=== PATIENT | female | born 1965 | race Caucasian/White ===

== ENCOUNTER 2019-03-01 20:00 | Inpatient (IN) | payer OTHER ==
[~2019-03-01] VITALS: Ht 157.5 cm; Wt 48.1 kg
[~2019-03-01 20:00] MED LIST: NS 1000ML 1,000 ML IV STA; NS 1000ML 1,000 ML ONE
--- NOTE | 2019-03-01 20:06 | ER.PDOC ---
General Chief Complaint: Requesting Medical Care Stated Complaint: SEIZURES Time seen by MD: 20:02 Source: family, EMS, EMS notes reviewed Exam Limitations: clinical condition History of Present Illness Initial Comments Seizures x2, patient is an alcoholic and last drink was 4 days ago. Patient had urinary incontinence. Timing/Onset/Duration: Multiple Episodes Character Of Seizures: lost consciousness Motor Activity: shaking all over Injury: none Allergies: Coded Allergies: aspirin (Verified Allergy, Unknown, 03/01/19) Home Meds Unable to Obtain Active Prescriptions or Reported Meds Social History Alcohol Use: heavy Constitutional: no symptoms reported EENTM: no symptoms reported Respiratory: no symptoms reported Cardiovascular: no symptoms reported Gastrointestinal: no symptoms reported Psychiatric/Neurological: see HPI All Other Systems: Reviewed and Negative Physical Exam General Appearance: alert, no distress, anxious EENT: nml eye inspection, PERRL, no nystagmus, nml ENT inspection, no apparent, pharynx nml, no CSF leak Respiratory: no resp distress, breath sounds nml, no evidence of rib injury CVS: reg rate & rhythm, heart sounds nml Abdomen: non-tender, no organomegaly, no distention Skin: color nml, no rash, warm/dry Extremities: non-tender, nml ROM, no pedal edema Neuro/Psych: oriented x 3, speech nml, mood/affect nml Cranial Nerves: nml tested Results/Orders Results/Orders Orders - TRI KAPLAN MD Cbc With Auto Diff (03/01/19 19:59) Comprehensive Metabolic Panel (03/01/19 19:59) Creatine Kinase (03/01/19 19:59) Xr Chest 1v (03/01/19 19:59) Ct Head Wo Contrast (03/01/19 19:59) Urinalysis (03/01/19 19:59) Ekg-Routine (03/01/19 19:59) Troponin I (03/01/19 19:59) Alcohol(Ml) (03/01/19 19:59) 0.9 % Sodium Chloride (Ns 1000ml) (03/01/19 19:59) EKG/XRAY/CT/US EKG: NSR XRAY: chest (No active disease) CT Comments: Nothing acute intracranially Departure Time of Disposition: 22:00 Disposition: 09 ADMITTED INPATIENT Impression: Primary Impression: Alcohol withdrawal seizure Qualified Codes: F10.239 - Alcohol dependence with withdrawal, unspecified; R56.9 - Unspecified convulsions Additional Impression: Hypokalemia Condition: Stable Scripts Unable to Obtain Active Prescriptions or Reported Meds Comments Admitted to Dr. Reese Duration or Time Spent with Pa: 60 mins ROSAURA,TRI Moon MD Mar 01, 2019 20:06
--- NOTE | 2019-03-01 20:14 | NUR ---
SEIZURES X2 PATIENT JUST ARRIVED FROM [place] WITH FAMILY. PATIENT IS A CHRONIC ALCOHOLIC. LAST DRINK WAS ON TUESDAY. PATIENT HAD A WITNESSED SEZURE X2 BY FAMILY. PATIENT INCONTINENT UPON ARRIVAL
--- NOTE | 2019-03-01 20:15 | PCM.EKG ---
[facility] Test Date: 2019-03-01 Test Time: 20:14:17 Pat Name: JAZLYN LEVINE Department: Room: ICU1 Gender: F Regulatory Affairs Analyst: EASTON : 1965 Requested By: TRI KAPLAN Order Number: [id number] Reading MD: Tri KAPLAN Measurements Intervals [place] Rate: 92 P: 63 PA: 144 QRS: 101 QRSD: 76 T: 47 QT: 382 QTc: 472 Interpretive Statements Normal sinus rhythm ST abnormality, possible digitalis effect Abnormal ECG No previous ECG available for comparison Electronically Signed On 03-02-2019 1:49:37 CDT by Tri KAPLAN Please click the below link to view image of tracing.
[2019-03-01 20:19] LABS: BASOPHIL % 0.6 % (0.0-0.2); EOSINOPHIL # 0.1 10^3/uL (0.0-0.2); EOSINOPHIL % 3.2 % (0.0-5.0); HEMOGLOBIN 13.3 g/dL (12.0-15.0); LYMPHOCYTES # 1.1 10^3/uL (1.0-4.8); LYMPHOCYTES % 32.1 % (24.0-44.0); MEAN CELL HGB 37.2 pg (26-34); MEAN CELL HGB CONCENTRATION 35.1 g/dL (33-37); MEAN CORP VOLUME 105.9 fL (78-100); MEAN PLATELET VOLUME 10.2 fL (7.8-11.0); MONOCYTES # 0.3 10^3/uL (0.3-0.8); MONOCYTES % 7.7 % (5.0-12.0); NEUTROPHILS % 56.4 % (41.0-85.0); WHITE BLOOD CELL 3.5 10^3/uL (4.5-11.0)
[2019-03-01 20:42] LABS: CALCIUM 9.3 mg/dL (8.4-10.5); CARBON DIOXIDE 23.8 mmol/L (20.0-32)
--- NOTE | 2019-03-01 21:07 | DIREP ---
PROCEDURE:CT HEAD OR BRAIN W/O CONTRAST COMPARISON:None. INDICATIONS:Seizure TECHNIQUE:CT images were created without intravenous contrast. Detected artifact. FINDINGS: VENTRICLES: Negative. CEREBRUM: Negative. CEREBELLUM: Negative. BRAINSTEM: Negative. BASAL CISTERNS: Negative. SKULL: Negative. SINUSES: Negative. OTHER: None. CONCLUSION: 1. There is no CT evidence of intracranial mass, hemorrhage, or acute infarct. Dictated by: Chai Ward M.D. on 03/01/2019 at 09:05 PM
--- NOTE | 2019-03-01 21:07 | DIREP ---
PROCEDURE:CHEST 1 VIEW COMPARISON:None. INDICATIONS:Seizure FINDINGS: LUNGS/PLEURA:Lungs are clear of focal consolidation. No evidence of pleural effusion. VASCULATURE:Unremarkable pulmonary vasculature. CARDIAC:No cardiac silhouette abnormality or cardiomegaly. THA/MEDIASTINUM:No visible mass or adenopathy. BONES:No acute fracture. OTHER:No additional findings. CONCLUSION: 1. No acute cardiopulmonary changes. Dictated by: Chai Ward M.D. on 03/01/2019 at 09:06 PM
[2019-03-01 21:08] VITALS: BP 135/40
--- NOTE | 2019-03-01 21:17 | NUR ---
HOME MEDS PATIENT TAKES A MEDICATION FOR HYPERTENSION AND ANXIETY BUT UNSURE OF NAME OR DOSE
[2019-03-01 21:31] LABS: BILIRUBIN,URINE NEGATIVE (NEGATIVE); UROBILINOGEN,URINE NORMAL (NEGATIVE)
--- NOTE | 2019-03-01 21:34 | NUR ---
VIVIANE Cook Mba on phone with Dr. Reese
[2019-03-01 21:37] LABS: APPEARANCE,URINE CLEAR (CLEAR); UA COLOR YELLOW (YELLOW)
[2019-03-01] MEDS ORDERED: HNS 1000ML/KCL 20MEQ 1,000 ML IV STA (22:01)
[2019-03-01] MEDS ORDERED: KLOR-CON 10 PO STA (22:01)
[2019-03-01] MEDS ORDERED: KLOR-CON 10 PO ONE (22:11)
[2019-03-01] MEDS ORDERED: HNS 1000ML/KCL 20MEQ 1,000 ML ONE (22:11)
[2019-03-01 22:30] VITALS: BP 135/87
--- NOTE | 2019-03-01 22:35 | NUR ---
TELEPHONE REPORT RECEIVED FROM THEE SANDOVAL.
--- NOTE | 2019-03-01 22:40 | NUR ---
ARRIVAL: PT ARRIVED TO ICU 1 VIA WHEELCHAIR WITH THEE SANDOVAL. ASSUMED PT CARE. PT IS ALERT AND ORIENTED X3. PT AMBULATED TO ICU BED INDEPENDENTLY. PT ORIENTED TO ENVIRONMENT WITH UNDERSTANDING. PT PLACED ON HEART MONITOR, NIBP AND PULSE OX. PT IS ON ROOM AIR. ALL VSS AND WNL. PT VOID[place] WHILST [place] [facility] [place]ANED UP AND PROVIDED WITH NEW GOWN. 18G IV SITE TO LT AC WITH HNS, 20KCL INFUSING @ 100ML/HR. CALL LIGHT AND TABLE WITHIN REACH. BED IN LOW POSITION, LOCKED, HOB ELEVATED AND SIDE RAILS PADDE FOR SEIZURE PRECAUTIONS AND UP X2. WILL CONTINUE TO MONITOR.
[2019-03-01 23:00] VITALS: BP 139/56
--- NOTE | 2019-03-01 23:01 | NUR ---
TELEPHONE ORDERS. DR PAN NOTIFIED OF PT ARRIVAL TO UNIT. TELEPHONE ORDERS GIVEN BELOW: 1 - NEXIUM 40MG IV DAILY 2 - LIBRIUM 25MG PO TID, AND ONE DOSE FOR TONIGHT 3 - ATIVAN 1-2MG IV Q3HRS PRN 4 - CLONIDINE 0.1MG PO TID 5 - HYDRALAZINE 12.5MG IV Q6HR PRN FOR SYSTOLIC GREATER THAN 165. 6 - AM LABS - CBC, CMP, MAG, TSH, B12, FOLATE AND THIAMINE 7 - BANANA BAG DAILY FOR TOTAL OF 3 DAYS TO BE ALTERNATED WITH IVF AND INFUSED @ 100ML/HR 8 - ROSALES CATHETER IF NEEDED 9 - TY LE SCD ALL TELEPHONE ORDERS RBAV
[2019-03-01] MEDS ORDERED: LIBRIUM ONE (23:20)
[2019-03-01 23:30] VITALS: BP 157/70
[2019-03-01 23:45] VITALS: BP 124/56
[2019-03-01] MEDS ORDERED: LIBRIUM PO STA (23:45)
[2019-03-02] VITALS (82 sets, daily range): BP systolic 82–160; BP diastolic 36–113
[2019-03-02] MEDS ORDERED: AMIT10TA PO (00:27)
[2019-03-02] MEDS ORDERED: DILT120C99 PO (00:27)
[2019-03-02] MEDS ORDERED: ATIVAN IV PRN ×2 (00:30→08:30)
[2019-03-02] MEDS ORDERED: APRESOLINE IV PRN (00:30)
--- NOTE | 2019-03-02 05:10 | NUR ---
RESEARCH PHYSICIAN AT BEDSIDE FOR BLOOD DRAW
[2019-03-02 05:28] LABS: HEMOGLOBIN 13.3 g/dL (12.0-15.0); MEAN CELL HGB 37.4 pg (26-34); MEAN CELL HGB CONCENTRATION 34.6 g/dL (33-37); MEAN CORP VOLUME 107.9 fL (78-100); MEAN PLATELET VOLUME 10.6 fL (7.8-11.0); RED CELL DISTRIBUTION WIDTH 13.5 % (11.5-14.5); WHITE BLOOD CELL 4.3 10^3/uL (4.5-11.0)
--- NOTE | 2019-03-02 05:35 | NUR ---
COFFEE GIVEN TO PT PER REQUEST
[2019-03-02 06:17] LABS: CALCIUM 9.3 mg/dL (8.4-10.5); CARBON DIOXIDE 25.7 mmol/L (20.0-32)
--- NOTE | 2019-03-02 06:31 | NUR ---
BATH: PT REFUSED BATH THIS MORNING AND REQUESTED WASH CLOTH TO WIPE FACE. WASH CLOTH PROVIDED PER REQUEST.
--- NOTE | 2019-03-02 06:39 | NUR ---
REPORT TO ONCOMING SHIFT. PT CARE RELINQUISHED.
--- NOTE | 2019-03-02 08:15 | NUR ---
DR. CHRIS AT BEDSIDE PLAN OF CARE DISCUSSED WITH PATIENT PATIENT EXPRESSES DESIRE TO LEAVE AMA RISK VS BENEFITS EXPLAINED TO PATIENT BY DR. CHRIS PATIENT STATES THAT SHE WILL TALK TO HER SISTER BEFORE MAKING ANY DECISION.
[2019-03-02] MEDS ORDERED: ZOFRAN IV PRN (08:30)
--- NOTE | 2019-03-02 08:30 | PCM.HP ---
History of Present Illness Reason for Visit: Seizure x 2 History of Present Illness Patient is a 54 F PMH of HTN, anxiety/depression, and alcohol abuse who was brought to ER by her family yesterday with 2 witnessed seizures. Seizures reported as tonic-clonic lasting less than a minute. Family brought her to the ER. Patient has hx of alcohol abuse. She drinks 3 glasses of wine 5x/week. Her last drink reported as 4 days ago. She was started on IV Ativan and Librium in ER. She is alert and oriented currently. She is wanting to leave hospital. I discussed plan of care with patient. She is not having psychotic symptoms including delusions/hallucinations. She is oriented x 3. She was capacity to make medical decisions. She understands plan of care and verbalizes understanding. She denies any other complaints. She denies SI/HI. She is not currently depressed but she is very anxious. Labs, imaging reviewed. Patient is no distress during my evaluation. Past Medical History Cardiac: HTN Psychiatric: Anxiety, Depression Past Surgical History: Past Social History Smoke: <1 pack per day Alcohol: heavy Drugs: None Lives: with Family Travel Hx EBOLA RISK:Travel to/contact w: No Is pt experiencing any Ebola s: No Review of Systems Constitutional: No: Fever, Chills Eyes: No: Conjunctivae inflammation, Eyelid inflammation ENT: No: Nose discharge, Nose congestion Respiratory: No: Cough, Shortness of breath, SOB with excertion, Wheezing Cardiovascular: No: Chest Pain, Palpitations, Edema Gastrointestinal: No: Nausea, Vomiting, Abdominal Pain Genitourinary: No Hematuria, No Retention Musculoskeletal: No: neck pain, back pain Skin: No: Rash, Lesions, Jaundice, Bruising Neurological: Seizures; No: Weakness, Numbness, Incoordination, Change in speec h, Confusion Allergies: Coded Allergies: aspirin (Verified Allergy, Unknown, 03/01/19) Scheduled Amitriptyline Hcl (Amitriptyline Hcl), 1 TAB PO HS, (Reported) Diltiazem Hcl (Diltiazem 24HR Er), 1 CAP PO DAILY, (Reported) VTE VTE Risk Total Score: >5 VTE Risk Score VTE Risk: Score 0-1 = Low Risk (Aggressive mobilization; early ambulation; no VTE prophylaxis required) Score 2: Moderate Risk (Intermittent/Pneumatic Compression Device OR Lovenox/Heparin/Coumadin) Score 3-4: High Risk (Intermittent/Pneumatic Compression Device AND Lovenox/Heparin/Coumadin) Score > or =5: Highest Risk (Intermittent/Pneumatic Compression Device AND Lovenox/Heparin/Coumadin) VTE VTE Present on Admission: Yes Currently receiving anticoagul: No VTE Risk Total Score: >5 Exam Vital Signs Vital Signs Date Time Temp Pulse Resp B/P (MAP) Pulse Ox O2 Delivery O2 Flow Rate FiO2 03/02/19 07:52 Room Air 03/02/19 07:30 98.5 84 11 119/62 (81) 98 98.5 General Appearance: Alert, Oriented X3, Cooperative, No acute distress HEENT: Atraumatic, PERRLA, EOMI, Mucous membr. moist/pink Respiratory: Clear to auscultation, Normal air movement Cardiovascular: Regular rate, Normal S1, Normal S2, No murmurs Abdominal: Normal bowel sounds, Soft, No tenderness Extremities: No edema, Normal pulses, No tenderness/swelling Skin: No rash, No breakdown, No lesions Neuro: Normal speech, Strength at 5/5 X4 ext, Normal tone, Sensation intact, Cranial nerves 3-12 NL Psych/Mental Status: Mental status NL, Mood NL Assessment/Plan Assessment/Plan Assessment/Plan Patient is a 54 F PMH of HTN, anxiety/depression, and alcohol abuse who was brought to ER by her family yesterday with 2 witnessed seizures. Patient History: Patient reports no known family medical history. Plan 1. Seizures: 2/2 alcohol withdrawal. Cont Librium, Ativan PRN. 2. Alcohol Abuse: counseled cessation. No marriage and family social worker currently. 3. Hypokalemia: repleted 4. Hyperbilirubinemia/elevated AST: 2/2 chronic alcohol use. No abdominal pain. No indication for further workup. Will start Regular diet. 5. Thrombocytopenia: 2/2 liver disease from alcohol. 6. Anxiety/Depression: cont Amitriptyline 7. HTN: cont Diltiazem 8. PPx: PPI, SCDs FINA CHRIS MD Mar 02, 2019 08:30
[2019-03-02] MEDS: LIBRIUM PO SCH ×3 (08:38→21:13)
[2019-03-02] MEDS: FOLIC ACID PO SCH (08:38)
[2019-03-02] MEDS: PROTONIX PO SCH (08:39)
[2019-03-02] MEDS: CARDIZEM CD PO SCH ×2 (08:39→21:14)
[2019-03-02] MEDS: VITAMIN B-12 PO SCH (08:39)
[2019-03-02] MEDS: THIAMINE HCL PO SCH (08:39)
[2019-03-02] MEDS: NICOTINE 21MG PATCH TD SCH (08:50)
[2019-03-02] MEDS ORDERED: CATAPRES PO SCH (09:00)
[2019-03-02] MEDS ORDERED: NEXIUM I.V. IV SCH (09:00)
--- NOTE | 2019-03-02 10:30 | NUR ---
IV IN L AC LEAKING AND BLEEDING. ATTEMPT TO REPOSITION CATHETER UNSUCCESSFUL. I.V. D/C'D AND NEW 20G IV INSERTED INTO R FA USING STERILE TECHNIQUE.
--- NOTE | 2019-03-02 11:28 | NUR ---
DISCHARGE PLANNING/SS CONSULT: SS RECEIVED CONSULT DUE TO PT'S PAST ALCOHOL ABUSE. PT LIVES HOME IN [place] AND IS CURRENTLY HERE WITH FAMILY VISITING. PT STATED SHE USE TO DRINK FIVE OR SIX DRINKS FIVE OR SIX TIMES A WEEK. PT STATED SHE STOPPED A FEW DAYS AGO AND STARTED HAVING SEIZURES. PT STATED SHE PLANS ON STOPPING AND WILL SEE HER PCP SOON SHE GETS BACK TO [place]. PT'S FAMILY STATED THEY PLAN ON GOING BACK TO [place] ONCE PT GETS OUT OF THE HOSPITAL IN A FEW DAYS. PT DENIED NEEDING LOCAL RESOURCE SINCE SHE DOES LIVE OUT OF STATE. NO FURTHER CM OR SS NEEDS NOTED AT THIS TIME. GOAL IS TO RETURN HOME UPON DISCHARGE. CM/SS TO CONTINUE TO FOLLOW PT'S PLAN OF CARE.
--- NOTE | 2019-03-02 17:25 | NUR ---
PATIENT REPORTS IV IN R FA BLEEDING. IV D/C'D AND NEW 22G IV INSERTED INTO L FA USING STERILE TECHNIQUE.
--- NOTE | 2019-03-02 18:38 | NUR ---
REPORT RECEIVED FROM DARBY ESCAMILLA RN. ASSUMED PT CARE.
--- NOTE | 2019-03-02 20:09 | NUR ---
AMBULATION: PT AMBULATING IN HALLWAY. STANDBY ASSISTANCE. PT TOLERATING WELL.
[2019-03-02] MEDS: ELAVIL PO SCH (21:00)
--- NOTE | 2019-03-02 21:45 | NUR ---
DR CHRIS AT BEDSIDE DISCUSSING PLAN OF CARE WITH PT AND FAMILY.
[2019-03-03] VITALS (25 sets, daily range): BP systolic 97–164; BP diastolic 44–103
--- NOTE | 2019-03-03 04:38 | NUR ---
CAREER AND TRANSITION TEACHER AT BEDSIDE FOR BLOOD DRAW
[2019-03-03 05:41] LABS: BASOPHIL % 0.7 % (0.0-0.2); EOSINOPHIL # 0.2 10^3/uL (0.0-0.2); EOSINOPHIL % 4.1 % (0.0-5.0); LYMPHOCYTES # 1.4 10^3/uL (1.0-4.8); LYMPHOCYTES % 34.4 % (24.0-44.0); MEAN CELL HGB 37.4 pg (26-34); MEAN CELL HGB CONCENTRATION 34.4 g/dL (33-37); MEAN CORP VOLUME 108.6 fL (78-100); MONOCYTES # 0.4 10^3/uL (0.3-0.8); MONOCYTES % 9.9 % (5.0-12.0); NEUTROPHIL # 2.1 10^3/uL (1.8-7.7); NEUTROPHILS % 50.9 % (41.0-85.0); RED CELL DISTRIBUTION WIDTH 13.2 % (11.5-14.5); WHITE BLOOD CELL 4.1 10^3/uL (4.5-11.0)
--- NOTE | 2019-03-03 06:40 | NUR ---
REPORT TO ONCOMING SHIFT. PT CARE RELINQUISHED.
--- NOTE | 2019-03-03 06:41 | NUR ---
RECEIVED REPORT FROM Nette SMITH RN. [facility].
[2019-03-03 06:56] LABS: CALCIUM 9.3 mg/dL (8.4-10.5)
--- NOTE | 2019-03-03 07:36 | NUR ---
ASSESSMENT/MOBILITY ASSESSMENT COMPLETED CHARTED. VSS. DENIES PAIN OR ANXIETY. AMBULATES IN ROOM AND ICU HALLWAY INDEPENDENTLY WITH NURSE SUPERVISION. STEADY GAIT NOTED. EARLY MOBILITY LEVEL A ON EARLY MOBILITY PROGRAM. PATIENT TO AMBULATE 3 TIMES A DAY, UP TO CHAIR WITH MEALS. PATIENT AMBULATED BACK TO BED. SCDS ON BED IN LOW LOCKED POSITION. CALL LIGHT IN REACH. SIDE RAILS UP X2.
--- NOTE | 2019-03-03 07:50 | NUR ---
DR. CHRIS AT BEDSIDE ASSESSING PATIENT AND DISCUSSING PLAN OF CARE. NEW ORDERS RECEIVED TO TRANSFER TO MED SURG FLOOR TODAY. RBVO.
--- NOTE | 2019-03-03 08:09 | PRM.PN ---
Subjective Subjective Date: Mar 03, 2019 Time: 08:10 Subjective Patient doing well. Had meeting with patient/family last night. Plan will be to d/c tomorrow if patient maintains stability. Titrating Librium today and will transfer to medical floor from ICU. Patient History: Patient reports no known family medical history. VTE VTE Risk Total Score: >5 VTE Risk Score VTE Risk: Score 0-1 = Low Risk (Aggressive mobilization; early ambulation; no VTE prophylaxis required) Score 2: Moderate Risk (Intermittent/Pneumatic Compression Device OR Lovenox/Heparin/Coumadin) Score 3-4: High Risk (Intermittent/Pneumatic Compression Device AND Lovenox/Heparin/Coumadin) Score > or =5: Highest Risk (Intermittent/Pneumatic Compression Device AND Lovenox/Heparin/Coumadin) Review of Systems Allergies: Coded Allergies: aspirin (Verified Allergy, Unknown, 03/01/19) Scheduled Amitriptyline Hcl (Amitriptyline Hcl), 1 TAB PO HS, (Reported) Diltiazem Hcl (Diltiazem 24HR Er), 1 CAP PO DAILY, (Reported) Objective Vitals and I/O Vital Sign - Last 24 Hours 03/02/19 03/02/19 03/02/19 03/02/19 08:15 08:31 08:39 08:45 Pulse 78 108 84 94 Resp 19 B/P (MAP) 122/69 (86) 152/76 (101) 119/62 125/70 (88) Pulse Ox 98 99 98 03/02/19 03/02/19 03/02/19 03/02/19 09:00 09:15 09:31 09:46 Pulse 94 86 84 97 Resp 36 B/P (MAP) 122/68 (86) 127/72 (90) 119/64 (82) 123/58 (79) Pulse Ox 98 100 98 94 03/02/19 03/02/19 03/02/19 03/02/19 10:09 10:30 10:45 11:00 Pulse 87 88 92 83 Resp 15 B/P (MAP) 126/76 (93) 129/68 (88) 125/56 (79) 125/59 (81) Pulse Ox 97 96 95 96 03/02/19 03/02/19 03/02/19 03/02/19 11:28 11:30 11:45 12:00 Pulse 76 79 82 82 Resp 20 18 15 15 B/P (MAP) 128/61 (83) 129/71 (90) 131/72 (91) 146/83 (104) Pulse Ox 96 96 98 99 03/02/19 6//28 02//03/02/19 12:15 12:30 12:30 12:45 Temp 98.6 98.6 Pulse 87 93 Resp 19 14 B/P (MAP) 145/79 (101) 160/69 (99) 149/64 (92) Pulse Ox 95 96 98 O2 Delivery Room Air 03/02/19 03/02/19 03/02/19 03/02/19 13:01 13:15 13:17 13:30 Pulse 98 B/P (MAP) 118/73 (88) 140/54 (82) 130/74 (92) Pulse Ox 96 90 95 98 03/02/19 03/02/19 03/02/19 03/02/19 13:45 14:00 14:15 14:17 B/P (MAP) 150/77 (101) 120/63 (82) Pulse Ox 97 98 98 98 03/02/19 03/02/19//03/02/19 14:25 14:30 14:32 14:46 Pulse 96 94 101 95 Resp 24 18 33 18 B/P (MAP) 124/67 (86) 134/65 (88) 119/77 (91) Pulse Ox 98 97 97 03/02/1903/02/03/02/19 03/02/19 15:01 15:15 15:31 15:45 Pulse 93 97 88 90 Resp 19 23 21 21 B/P (MAP) 159/75 (103) 127/77 (94) 115/63 (80) 108/45 (66) Pulse Ox 96 97 98 96 03/02/19 03/02/19 03/02/19 03/02/19 16:09 16:15 16:37 16:45 Pulse 88 94 89 73 Resp 23 26 16 21 B/P (MAP) 123/73 (90) 129/67 (87) 135/75 (95) 122/79 (93) Pulse Ox 98 98 99 03/02/19 03/02/19 03/02/19 03/02/19 17:23 17:24 17:30 17:45 Pulse 79 95 92 Resp 14 24 B/P (MAP) 132/73 (92) 129/77 (94) 123/70 (87) Pulse Ox 98 98 97 O2 Delivery Room Air 03/02/19 03/02/19 03/02/19 03/02/19 18:30 18:54 19:00 19:15 Temp 99.0 99.0 Pulse 93 96 95 93 Resp 14 27 13 B/P (MAP) 144/36 (72) 141/73 (95) 137/78 (97) Pulse Ox 99 97 98 03/02/19 03/02/19 03/02/19 03/02/19 19:31 19:37 19:45 20:00 Pulse 91 87 94 Resp 22 19 B/P (MAP) 118/78 (91) Pulse Ox 94 97 98 O2 Delivery Room Air 03/02/19 03/02/19 03/02/19 03/02/19 20:02 20:15 20:32 20:50 Pulse 94 87 89 91 Resp 23 14 33 25 B/P (MAP) 134/78 (96) Pulse Ox 97 98 98 98 03/02/19 03/02/19 03/02/19 03/02/19 21:00 21:07 21:14 21:15 Pulse 91 97 91 82 Resp 21 17 B/P (MAP) 134/74 (94) 132/80 Pulse Ox 98 98 97 03/02/19 03/02/19 03/02/19 03/02/19 21:30 21:45 22:00 22:31 Pulse 99 98 83 94 Resp 21 10 19 B/P (MAP) 132/80 (97) 134/71 (92) 132/60 (84) Pulse Ox 98 92 98 03/02/19 03/02/19 03/02/19 03/02/19 22:45 23:00 23:07 23:08 Temp 98.3 98.3 Pulse 88 96 91 81 Resp 18 25 22 17 B/P (MAP) 82/50 (61) 123/66 (85) Pulse Ox 98 97 96 95 03/02/19 03/02/19 03/02/19 03/02/19 23:15 23:29 23:32 23:45 Pulse 80 79 71 Resp 21 19 20 B/P (MAP) 107/54 (71) Pulse Ox 96 98 97 O2 Delivery Room Air 03/03/19 03/03/19 03/03/19 03/03/19 00:00 00:15 00:31 00:45 Pulse 81 77 80 69 Resp 20 19 16 21 B/P (MAP) 104/51 (68) 104/70 (81) Pulse Ox 97 97 98 97 03/03/19 03/03/19 03/03/19 03/03/19 01:00 01:30 01:45 02:00 Pulse 70 76 76 71 Resp 19 16 19 B/P (MAP) 102/50 (67) 113/49 (70) 111/60 (77) Pulse Ox 97 97 99 03/03/19 03/03/19 03/03/19 03/03/19 02:15 02:30 02:45 03:00 Pulse 75 69 71 74 Resp 22 18 B/P (MAP) 103/50 (67) 97/52 (67) Pulse Ox 99 97 98 96 03/03/19 03/03/19 03/03/19 03/03/19 03:15 03:31 03:45 03:59 Pulse 73 93 64 Resp 19 18 19 B/P (MAP) 127/66 (86) Pulse Ox 97 99 97 O2 Delivery Room Air 03/03/19 03/03/19 03/03/19 03/03/19 04:00 04:15 04:30 04:45 Temp 97.9 97.9 Pulse 70 62 73 72 Resp 19 17 20 19 B/P (MAP) 100/66 (77) 120/58 (78) Pulse Ox 97 96 95 03/03/19 03/03/19 03/03/19 03/03/19 05:00 05:15 05:30 05:45 Pulse 71 68 77 77 Resp 19 18 18 28 B/P (MAP) 100/51 (67) 123/44 (70) Pulse Ox 94 99 97 97 03/03/19 03/03/19 03/03/19 06:00 06:15 06:30 Pulse 75 72 65 Resp 20 19 19 B/P (MAP) 119/50 (73) 109/44 (65) Pulse Ox 100 99 Intake and Output 03/02/19 03/02/19 03/03/19 15:00 23:00 07:00 Intake Total 2148 ml 1140 ml Output Total 1200 ml 1280 ml Balance 948 ml -140 ml General: Alert, Oriented X3, Cooperative, No acute distress HEENT: Atraumatic, PERRLA, EOMI, Mucous membr. moist/pink Neck: Supple, No JVD Lungs: Clear to auscultation, Normal air movement Heart: Regular rate, Normal S1, Normal S2, No murmurs Abdomen: Normal bowel sounds, Soft, No tenderness Extremities: No edema, Normal pulses, No tenderness/swelling Skin: No rashes, No breakdown, No significant lesion Neuro: Normal speech, Strength at 5/5 X4 ext, Normal tone, Sensation intact, Cranial nerves 3-12 NL Psych/Mental Status: Mental status NL, Mood NL All Results(Lab/Rad) Laboratory Tests Test 03/03/19 04:38 White Blood Count 4.1 10^3/uL Red Blood Count 3.48 10^6/uL Hemoglobin 13.0 g/dL Hematocrit 37.8 % Mean Corpuscular Volume 108.6 fL Mean Corpuscular Hemoglobin 37.4 pg Mean Corpuscular Hemoglobin Concent 34.4 g/dL Red Cell Distribution Width 13.2 % Platelet Count 86 10^3/uL Mean Platelet Volume 11.0 fL Neutrophils (%) (Auto) 50.9 % Lymphocytes (%) (Auto) 34.4 % Monocytes (%) (Auto) 9.9 % Neutrophils # (Auto) 2.1 10^3/uL Lymphocytes # (Auto) 1.4 10^3/uL Monocytes # (Auto) 0.4 10^3/uL Absolute Immature Granulocyte (auto 0 10^3 u/L Immature Granulocytes % 0.00 % Eosinophils % 4.1 % Basophils % 0.7 % Basophils # 0.0 10^3/uL Eosinophil Count 0.2 10^3/uL Sodium Level 143 mmol/L Potassium Level 3.7 mmol/L Chloride Level 108.0 mmol/L Carbon Dioxide Level 24.0 mmol/L Anion Gap 14.7 Blood Urea Nitrogen 5 mg/dL Creatinine 0.34 mg/dL Estimated GFR () 241.0 BUN/Creatinine Ratio 14.0 Glucose Level 86 mg/dL Calcium Level 9.3 mg/dL Total Bilirubin 0.8 mg/dL Aspartate Amino Transf (AST/SGOT) 64 U/L Alanine Aminotransferase (ALT/SGPT) 60 U/L Alkaline Phosphatase 67 U/L Total Protein 6.6 g/dL Albumin 3.1 g/dL Globulin 3.5 Current Medications Medications (Trade) Dose Ordered Sig/Ewelina Route PRN Reason Start Time Stop Time Status Last Admin Dose Admin Sodium Chloride 1,000 ml @ 1,200 mls/hr Q50M STAT IV 03/01/19 19:59 03/01/19 20:48 DC 03/01/19 20:07 Sodium Chloride 1,000 ml @ ud STK-MED ONCE .ROUTE 03/01/19 20:00 03/01/19 20:02 DC Potassium Chloride/Sodium Chloride 1,000 ml @ 100 mls/hr Q10H STAT IV 03/01/19 22:01 03/02/19 08:00 DC 03/01/19 22:19 Potassium Chloride (Klor-Con 10) 40 meq STAT STAT PO 03/01/19 22:01 03/01/19 22:04 DC 03/01/19 22:19 Potassium Chloride/Sodium Chloride 1,000 ml @ ud STK-MED ONCE .ROUTE 03/01/19 22:11 03/01/19 22:14 DC Potassium Chloride (Klor-Con 10) 10 meq STK-MED ONCE PO 03/01/19 22:11 03/01/19 22:14 DC Chlordiazepoxide (Librium) 25 mg STK-MED ONCE .ROUTE 03/01/19 23:20 03/01/19 23:22 DC Chlordiazepoxide (Librium) 25 mg STAT STAT PO 03/01/19 23:45 03/02/19 00:15 DC 03/01/19 23:48 Esomeprazole Magnesium (Nexium I.v.) 40 mg DAILY IV 03/02/19 09:00 03/02/19 09:00 DC Chlordiazepoxide (Librium) 25 mg TID PO 03/02/19 09:00 03/03/19 08:02 DC 03/02/19 21:13 Lorazepam (Ativan) 1 mg Q3HR PRN IV MILD AGITATION 03/02/19 00:30 04/01/19 00:29 Clonidine (Catapres) 0.1 mg TID PO 03/02/19 09:00 03/02/19 09:00 DC Hydralazine HCl (Apresoline) 12.5 mg Q6HR PRN IV HYPERTENSION 03/02/19 00:30 03/02/19 08:20 DC Amitriptyline HCl (Elavil) 10 mg HS PO 03/02/19 21:00 04/01/19 20:59 03/02/19 21:00 Diltiazem HCl (Cardizem Cd) 120 mg DAILY PO 03/02/19 09:00 04/01/19 08:59 03/02/19 21:14 Lorazepam (Ativan) 2 mg Q3HR PRN IV MODERATE AGITATION 03/02/19 08:30 03/03/19 08:02 DC Folic Acid (Folic Acid) 1 mg DAILY PO 03/02/19 09:00 04/01/19 08:59 03/02/19 08:38 Thiamine HCl (Thiamine HCl) 100 mg DAILY PO 03/02/19 09:00 04/01/19 08:59 03/02/19 08:39 Cyanocobalamin (Vitamin B-12) 1,000 mcg DAILY PO 03/02/19 09:00 04/01/19 08:59 03/02/19 08:39 Ondansetron HCl (Zofran) 4 mg Q4H PRN IV NAUSEA / VOMITING 03/02/19 08:30 04/01/19 08:29 Pantoprazole Sodium (Protonix) 40 mg DAILY PO 03/02/19 09:00 04/01/19 08:59 03/02/19 08:39 Nicotine (Nicotine 21mg Patch) 1 each DAILY TD 03/02/19 09:00 04/01/19 08:59 03/02/19 08:50 Chlordiazepoxide (Librium) 25 mg BID PO 03/03/19 09:00 04/01/19 08:59 UNV Course Sepsis Screening Results: Posi: NEGATIVE Sepsis Qualifier/Stage: NO DEFINITE RISK Duration or Total Time Spent w: 60 mins Vitals & review Data Vital Sign - Last 24 Hours 03/02/19 03/02/19 03/02/19 03/02/19 08:15 08:31 08:39 08:45 Pulse 78 108 84 94 Resp 16 19 B/P (MAP) 122/69 (86) 152/76 (101) 119/62 125/70 (88) Pulse Ox 98 99 98 03/02/19 03/02/19 03/02/1903/02/19 09:00 09:15 09:31 09:46 Pulse 94 86 84 97 Resp 19 19 36 B/P (MAP) 122/68 (86) 127/72 (90) 119/64 (82) 123/58 (79) Pulse Ox 98 100 98 94 03/02/19 03/02/19 03/02/19 03/02/19 10:09 10:30 10:45 11:00 Pulse 87 88 92 83 Resp 14 24 21 15 B/P (MAP) 126/76 (93) 129/68 (88) 125/56 (79) 125/59 (81) Pulse Ox 97 96 95 96 03/02/19 03/02/19 03/02/19 03/02/19 11:28 11:30 11:45 12:00 Pulse 76 79 82 82 Resp 20 18 15 15 B/P (MAP) 128/61 (83) 129/71 (90) 131/72 (91) 146/83 (104) Pulse Ox 96 96 98 99 03/02/19 03/02/19 03/02/19 03/02/19 12:15 12:30 12:30 12:45 Temp 98.6 98.6 Pulse 87 93 Resp 19 14 B/P (MAP) 145/79 (101) 160/69 (99) 149/64 (92) Pulse Ox 95 96 98 O2 Delivery Room Air 03/02/19 03/02/19 03/02/19 03/02/19 13:01 13:15 13:17 13:30 Pulse 98 B/P (MAP) 118/73 (88) 140/54 (82) 130/74 (92) Pulse Ox 96 90 95 98 03/02/19 03/02/19 03/02/19 03/02/19 13:45 14:00 14:15 14:17 B/P (MAP) 150/77 (101) 120/63 (82) Pulse Ox 97 98 98 98 03/02/19 03/02/19 03/02/19 03/02/19 14:25 14:30 14:32 14:46 Pulse 96 94 101 95 Resp 24 18 33 18 B/P (MAP) 124/67 (86) 134/65 (88) 119/77 (91) Pulse Ox 98 97 97 6/21/19 03/02/19 03/02/19 03/02/19 15:01 15:15 15:31 15:45 Pulse 93 97 88 90 Resp 19 23 21 21 B/P (MAP) 159/75 (103) 127/77 (94) 115/63 (80) 108/45 (66) Pulse Ox 96 97 98 96 03/02/19 03/02/19 03/02/19 03/02/19 16:09 16:15 16:37 16:45 Pulse 88 94 89 73 Resp 23 26 16 21 B/P (MAP) 123/73 (90) 129/67 (87) 135/75 (95) 122/79 (93) Pulse Ox 98 98 99 03/02/19 03/02/19 03/02/19 03/02/19 17:23 17:24 17:30 17:45 Pulse 79 95 92 Resp 14 24 B/P (MAP) 132/73 (92) 129/77 (94) 123/70 (87) Pulse Ox 98 98 97 O2 Delivery Room Air 03/02/19 03/02/19 03/02/19 03/02/19 18:30 18:54 19:00 19:15 Temp 99.0 99.0 Pulse 93 96 95 93 Resp 14 27 13 B/P (MAP) 144/36 (72) 141/73 (95) 137/78 (97) Pulse Ox 99 97 98 03/02/19 03/02/19 03/02/19 03/02/19 19:31 19:37 19:45 20:00 Pulse 91 87 94 Resp 19 B/P (MAP) 118/78 (91) Pulse Ox 94 97 98 O2 Delivery Room Air 03/02/19 03/02/19 03/02/19 03/02/19 20:02 20:15 20:32 20:50 Pulse 94 87 89 91 Resp 23 14 33 25 B/P (MAP) 134/78 (96) Pulse Ox 97 98 98 98 03/02/19 03/02/19 03/02/19 03/02/19 21:00 21:07 21:14 21:15 Pulse 91 97 91 82 Resp 21 17 B/P (MAP) 134/74 (94) 132/80 Pulse Ox 98 98 97 03/02/19 03/02/19 03/02/19 03/02/19 21:30 21:45 22:00 22:31 Pulse 99 98 83 94 Resp 21 10 19 B/P (MAP) 132/80 (97) 134/71 (92) 132/60 (84) Pulse Ox 98 92 98 03/02/19 03/02/19 03/02/19 03/02/19 22:45 23:00 23:07 23:08 Temp 98.3 98.3 Pulse 88 96 91 81 Resp 17 B/P (MAP) 82/50 (61) 123/66 (85) Pulse Ox 98 97 96 95 03/02/19 03/02/19 03/02/19 03/02/19 23:15 23:29 23:32 23:45 Pulse 80 79 71 Resp 19 20 B/P (MAP) 107/54 (71) Pulse Ox 96 98 97 O2 Delivery Room Air 03/03/19 03/03/19 03/03/19 03/03/19 00:00 00:15 00:31 00:45 Pulse 81 77 80 69 Resp 16 21 B/P (MAP) 104/51 (68) 104/70 (81) Pulse Ox 97 97 98 97 03/03/19 03/03/19 03/03/19 03/03/19 01:00 01:30 01:45 02:00 Pulse 70 76 76 71 Resp 9 16 19 B/P (MAP) 102/50 (67) 113/49 (70) 111/60 (77) Pulse Ox 97 97 99 03/03/19 03/03/19 03/03/19 03/03/19 02:15 02:30 02:45 03:00 Pulse 75 69 71 74 Resp 22 18 B/P (MAP) 103/50 (67) 97/52 (67) Pulse Ox 99 97 98 96 03/03/19 03/03/19 03/03/19 03/03/19 03:15 03:31 03:45 03:59 Pulse 73 93 64 Resp 18 19 B/P (MAP) 127/66 (86) Pulse Ox 97 99 97 O2 Delivery Room Air 03/03/19 03/03/19 03/03/19 03/03/19 04:00 04:15 04:30 04:45 Temp 97.9 97.9 Pulse 70 62 73 72 Resp 20 19 B/P (MAP) 100/66 (77) 120/58 (78) Pulse Ox 97 96 95 03/03/19 03/03/19 03/03/19 03/03/19 05:00 05:15 05:30 05:45 Pulse 71 68 77 77 Resp 18 28 B/P (MAP) 100/51 (67) 123/44 (70) Pulse Ox 94 99 97 97 03/03/19 03/03/19 03/03/19 06:00 06:15 06:30 Pulse 75 72 65 Resp 19 B/P (MAP) 119/50 (73) 109/44 (65) Pulse Ox 100 99 Intake and Output 03/02/19 03/02/19 03/03/19 15:00 23:00 07:00 Intake Total 2148 ml 1140 ml Output Total 1200 ml 1280 ml Balance 948 ml -140 ml Laboratory Tests Test 03/01/19 20:15 03/01/19 21:24 03/02/19 05:03 03/03/19 04:38 White Blood Count 3.5 10^3/uL 4.3 10^3/uL 4.1 10^3/uL Red Blood Count 3.58 10^6/uL 3.56 10^6/uL 3.48 10^6/uL Hemoglobin 13.3 g/dL 13.3 g/dL 13.0 g/dL Hematocrit 37.9 % 38.4 % 37.8 % Mean Corpuscular Volume 105.9 fL 107.9 fL 108.6 fL Mean Corpuscular Hemoglobin 37.2 pg 37.4 pg 37.4 pg Mean Corpuscular Hemoglobin Concent 35.1 g/dL 34.6 g/dL 34.4 g/dL Red Cell Distribution Width 13.0 % 13.5 % 13.2 % Platelet Count 94 10^3/uL 99 10^3/uL 86 10^3/uL Mean Platelet Volume 10.2 fL 10.6 fL 11.0 fL Neutrophils (%) (Auto) 56.4 % 50.9 % Lymphocytes (%) (Auto) 32.1 % 34.4 % Monocytes (%) (Auto) 7.7 % 9.9 % Neutrophils # (Auto) 2.0 10^3/uL 2.1 10^3/uL Lymphocytes # (Auto) 1.1 10^3/uL 1.4 10^3/uL Monocytes # (Auto) 0.3 10^3/uL 0.4 10^3/uL Absolute Immature Granulocyte (auto 0 10^3 u/L 0 10^3 u/L Immature Granulocytes % 0.00 % 0.00 % Eosinophils % 3.2 % 4.1 % Basophils % 0.6 % 0.7 % Basophils # 0.0 10^3/uL 0.0 10^3/uL Eosinophil Count 0.1 10^3/uL 0.2 10^3/uL Sodium Level 138 mmol/L 144 mmol/L 143 mmol/L Potassium Level 3.0 mmol/L 3.9 mmol/L 3.7 mmol/L Chloride Level 101.0 mmol/L 108.0 mmol/L 108.0 mmol/L Carbon Dioxide Level 23.8 mmol/L 25.7 mmol/L 24.0 mmol/L Anion Gap 16.2 14.2 14.7 Blood Urea Nitrogen 10 mg/dL 6 mg/dL 5 mg/dL Creatinine 0.63 mg/dL 0.54 mg/dL 0.34 mg/dL Estimated GFR () 118.3 141.3 241.0 BUN/Creatinine Ratio 15.0 11.0 14.0 Glucose Level 127 mg/dL 88 mg/dL 86 mg/dL Calcium Level 9.3 mg/dL 9.3 mg/dL 9.3 mg/dL Total Bilirubin 1.2 mg/dL 1.1 mg/dL 0.8 mg/dL Aspartate Amino Transf (AST/SGOT) 100 U/L 81 U/L 64 U/L Alanine Aminotransferase (ALT/SGPT) 69 U/L 68 U/L 60 U/L Alkaline Phosphatase 81 U/L 81 U/L 67 U/L Total Creatine Kinase 89 U/L Troponin I 0.05 ng/mL Total Protein 7.1 g/dL 6.9 g/dL 6.6 g/dL Albumin 3.7 g/dL 3.5 g/dL 3.1 g/dL Globulin 3.4 3.4 3.5 Serum Alcohol < 3 mg/dL Urine Collection Type VOID Urine Color YELLOW Urine Appearance CLEAR Urine Bilirubin NEGATIVE MG/DL Urine Ketones NEGATIVE Urine Specific [place] 1.010 Urine pH 7 Urine Protein NEGATIVE Urine Urobilinogen NORMAL Urine Nitrate NEGATIVE Urine Leukocyte Esterase NEGATIVE Urine Blood NEGATIVE Urine Glucose NORMAL Urine Opiates, Qualitative NEGATIVE ng/mL Urine Methadone, Qualitative NEGATIVE ng/mL Urine Amphetamine Qualitative NEGATIVE ng/mL Urine Barbiturates, Qualitative NEGATIVE ng/mL Urine Phencyclidine Screen NEGATIVE ng/mL Urine MDMA (Ecstasy), Qualitative NEGATIVE ng/mL Urine Benzodiazepines Screen NEGATIVE ng/mL Urine Cocaine Qualitative NEGATIVE ng/mL Ur Tetrahydrocannabinol (THC) Scrn NEGATIVE ng/mL Magnesium Level 1.9 mg/dL Vitamin B12 Level 448 pg/mL Folate 48.1 ng/mL Thyroid Stimulating Hormone (TSH) 7.292 mIU/mL Current Medications Medications (Trade) Dose Ordered Sig/Ewelina PRN Reason Start Time Stop Time Status Last Admin Amitriptyline HCl (Elavil) 10 mg HS 03/02/19 21:00 04/01/19 20:59 03/02/19 21:00 Chlordiazepoxide (Librium) 25 mg BID 03/03/19 09:00 04/01/19 08:59 UNV Cyanocobalamin (Vitamin B-12) 1,000 mcg DAILY 03/02/19 09:00 04/01/19 08:59 03/02/19 08:39 Diltiazem HCl (Cardizem Cd) 120 mg DAILY 03/02/19 09:00 04/01/19 08:59 03/02/19 21:14 Folic Acid (Folic Acid) 1 mg DAILY 03/02/19 09:00 04/01/19 08:59 03/02/19 08:38 Lorazepam (Ativan) 1 mg Q3HR PRN MILD AGITATION 03/02/19 00:30 04/01/19 00:29 Nicotine (Nicotine 21mg Patch) 1 each DAILY 03/02/19 09:00 04/01/19 08:59 03/02/19 08:50 Ondansetron HCl (Zofran) 4 mg Q4H PRN NAUSEA / VOMITING 03/02/19 08:30 04/01/19 08:29 Pantoprazole Sodium (Protonix) 40 mg DAILY 03/02/19 09:00 04/01/19 08:59 03/02/19 08:39 Thiamine HCl (Thiamine HCl) 100 mg DAILY 03/02/19 09:00 04/01/19 08:59 03/02/19 08:39 Sepsis Infection Criteria Pres: None LEVEL 1 SEPSIS INFECTION CRITE: None/Not assessed LEVEL 2-SIRS (LIST ALL THAT AP: None/Not assessed Cardiovascular Evidence: Not Assessed or None Hematologic Evidence: Platelets<100K Hepatic Evidence: Elevated AST(SGOT)>72 Metabolic Evidence: None/Not assessed Neurological Evidence: None/Not assessed Respiratory Evidence: None/Not assessed Renal Evidence: None/Not assessed O2 Sat by Pulse Oximetry: 99 Assessment/Plan Assessment/Plan Assessment/Plan 1. Seizures: 2/2 alcohol withdrawal. Cont Librium, Ativan PRN. 2. Alcohol Abuse: counseled cessation. No child welfare social worker currently. 3. Hypokalemia: repleted 4. Hyperbilirubinemia/elevated AST: 2/2 chronic alcohol use. No abdominal pain. No indication for further workup. Discussed likelihood of chronic liver disease with patient. She will need GI referral outpatient. 5. Thrombocytopenia: 2/2 liver disease from alcohol. 6. Anxiety/Depression: cont Amitriptyline 7. HTN: cont Diltiazem 8. PPx: PPI, SCDs FINA CHRIS MD Mar 03, 2019 08:09
[2019-03-03] MEDS ORDERED: LIBRIUM ONE (08:40)
[2019-03-03] MEDS: PROTONIX PO SCH (08:46)
[2019-03-03] MEDS: VITAMIN B-12 PO SCH (08:46)
[2019-03-03] MEDS: LIBRIUM PO SCH ×2 (08:46→21:28)
[2019-03-03] MEDS: FOLIC ACID PO SCH (08:46)
[2019-03-03] MEDS: THIAMINE HCL PO SCH (08:46)
[2019-03-03] MEDS: NICOTINE 21MG PATCH TD SCH (08:48)
--- NOTE | 2019-03-03 14:20 | NUR ---
TRANSFERRED TO [facility] FLOOR VIA WHEELCHAIR AMBULATED TO BED INDEPENDENTLY. FAMILY AT BEDSIDE WITH PATIENT BELONGINGS. REPORT GIVEN TO Delta VIDAL RN RELINQUISHED CARE.
--- NOTE | 2019-03-03 18:39 | NUR ---
report received report from offgoing shift
[2019-03-03] MEDS: ELAVIL PO SCH (21:00)
[2019-03-03] MEDS ORDERED: ELAVIL ONE (21:14)
[2019-03-04 00:28] VITALS: BP 143/75
[2019-03-04 04:27] VITALS: BP 139/82
[2019-03-04 05:55] LABS: BASOPHIL % 0.6 % (0.0-0.2); EOSINOPHIL # 0.2 10^3/uL (0.0-0.2); EOSINOPHIL % 3.1 % (0.0-5.0); HEMOGLOBIN 13.4 g/dL (12.0-15.0); LYMPHOCYTES # 1.5 10^3/uL (1.0-4.8); LYMPHOCYTES % 32.2 % (24.0-44.0); MEAN CELL HGB 37.6 pg (26-34); MEAN CELL HGB CONCENTRATION 34.7 g/dL (33-37); MEAN CORP VOLUME 108.4 fL (78-100); MEAN PLATELET VOLUME 10.7 fL (7.8-11.0); MONOCYTES # 0.6 10^3/uL (0.3-0.8); MONOCYTES % 11.5 % (5.0-12.0); NEUTROPHIL # 2.5 10^3/uL (1.8-7.7); NEUTROPHILS % 52.4 % (41.0-85.0); WHITE BLOOD CELL 4.8 10^3/uL (4.5-11.0)
[2019-03-04 06:12] LABS: CALCIUM 9.6 mg/dL (8.4-10.5); CARBON DIOXIDE 25.8 mmol/L (20.0-32)
--- NOTE | 2019-03-04 06:45 | NUR ---
REPORT RECEIVED REPORT, ASSUMED CARE FOR PATIENT AT THIS TIME.
--- NOTE | 2019-03-04 06:48 | NUR ---
report report given to o/c shift
[2019-03-04 08:48] VITALS: BP 133/71
[2019-03-04] MEDS: NICOTINE 21MG PATCH TD SCH (08:49)
[2019-03-04] MEDS: FOLIC ACID PO SCH (08:49)
[2019-03-04] MEDS: PROTONIX PO SCH (08:49)
[2019-03-04] MEDS: VITAMIN B-12 PO SCH (08:50)
[2019-03-04] MEDS: THIAMINE HCL PO SCH (08:50)
[2019-03-04] MEDS: LIBRIUM PO SCH (08:50)
[2019-03-04] MEDS: CARDIZEM CD PO SCH (08:50)
[2019-03-04] MEDS ORDERED: KLOR-CON 10 PO STA (08:59)
--- NOTE | 2019-03-04 09:18 | PRM.DC ---
Discharge Summary Date of Discharge: Mar 04, 2019 Time of Request to Discharge: 12:00 Reason for Visit: Seizure x 2 Hospital Course Patient admitted following seizure 2/2 alcohol withdrawals. Patient originally placed in ICU. Patient was not suicidal, she has depression but no acute issues. Her last drink was approximately 72 hours prior to seizure. Patient had negative CT head and normal Neuro exam without any deficits. Patient was treated with PO librium taper and IV Ativan PRN. Patient had no further seizures. She was transferred out of ICU and stable for d/c. Patient informed of her lab findings. She needs outpatient f/u with GI specialist to evaluate extent of liver disease. Patient feels much better. She was given Librium morning of d/c. Patient counseled for alcohol cessation. She was informed not to drive until cleared by PCP. F/U with PCP within 1 week. Strict return precautions given. Patient potassium low AM of d/c and we will replete prior to d/c. Patient History: Patient reports no known family medical history. General: Alert, Oriented X3, Cooperative, No acute distress HEENT: Atraumatic, PERRLA, EOMI, Mucous membr. moist/pink Neck: Supple, No JVD Lungs: Clear to auscultation, Normal air movement Heart: Regular rate, Normal S1, Normal S2, No murmurs Abdomen: Normal bowel sounds, Soft, No tenderness Extremities: No edema, Normal pulses, No tenderness/swelling Skin: No rashes, No breakdown, No significant lesion Neuro: Normal gait, Normal speech, Strength at 5/5 X4 ext, Normal tone, Sensation intact, Cranial nerves 3-12 NL Psych/Mental Status: Mental status NL, Mood NL Scheduled Amitriptyline Hcl (Amitriptyline Hcl), 1 TAB PO HS, (Reported) Diltiazem Hcl (Diltiazem 24HR Er), 1 CAP PO DAILY, (Reported) Sepsis Evaluation @ Discharge Vital Sign - Last 24 Hours 03/02/19 03/02/19 03/02/19 03/02/19 08:15 08:31 08:39 08:45 Pulse 78 108 84 94 Resp 16 19 B/P (MAP) 122/69 (86) 152/76 (101) 119/62 125/70 (88) Pulse Ox 98 99 98 03/02/19 03/02/19 03/02/19 03/02/19 09:00 09:15 09:31 09:46 Pulse 94 86 84 97 Resp 19 21 19 36 B/P (MAP) 122/68 (86) 127/72 (90) 119/64 (82) 123/58 (79) Pulse Ox 98 100 98 94 03/02/19 03/02/19 03/02/19 03/02/19 10:09 10:30 10:45 11:00 Pulse 87 88 92 83 Resp 14 24 21 15 B/P (MAP) 126/76 (93) 129/68 (88) 125/56 (79) 125/59 (81) Pulse Ox 97 96 95 96 03/02/19 03/02/19 03/02/19 03/02/19 11:28 11:30 11:45 12:00 Pulse 76 79 82 82 Resp 20 18 15 15 B/P (MAP) 128/61 (83) 129/71 (90) 131/72 (91) 146/83 (104) Pulse Ox 96 96 98 99 03/02/19 03/02/19 03/02/19 03/02/19 12:15 12:30 12:30 12:45 Temp 98.6 98.6 Pulse 87 93 Resp 19 14 B/P (MAP) 145/79 (101) 160/69 (99) 149/64 (92) Pulse Ox 95 96 98 O2 Delivery Room Air 03/02/19 03/02/19 03/02/19 03/02/19 13:01 13:15 13:17 13:30 Pulse 98 B/P (MAP) 118/73 (88) 140/54 (82) 130/74 (92) Pulse Ox 96 90 95 98 03/02/19 03/02/19 03/02/19 03/02/19 13:45 14:00 14:15 14:17 B/P (MAP) 150/77 (101) 120/63 (82) Pulse Ox 97 98 98 98 03/02/19 03/02/19 03/02/19 03/02/19 14:25 14:30 14:32 14:46 Pulse 96 94 101 95 Resp 24 18 33 18 B/P (MAP) 124/67 (86) 134/65 (88) 119/77 (91) Pulse Ox 98 97 97 03/02/19 03/02/19 03/02/19 03/02/19 15:01 15:15 15:31 15:45 Pulse 93 97 88 90 Resp 19 23 21 21 B/P (MAP) 159/75 (103) 127/77 (94) 115/63 (80) 108/45 (66) Pulse Ox 96 97 98 96 03/02/19 03/02/19 03/02/19 03/02/19 16:09 16:15 16:37 16:45 Pulse 88 94 89 73 Resp 23 26 16 21 B/P (MAP) 123/73 (90) 129/67 (87) 135/75 (95) 122/79 (93) Pulse Ox 98 98 99 03/02/19 03/02/19 03/02/19 03/02/19 17:23 17:24 17:30 17:45 Pulse 79 95 92 Resp 14 24 B/P (MAP) 132/73 (92) 129/77 (94) 123/70 (87) Pulse Ox 98 98 97 O2 Delivery Room Air 03/02/19 03/02/19 03/02/19 03/02/19 18:30 18:54 19:00 19:15 Temp 99.0 99.0 Pulse 93 96 95 93 Resp 14 27 13 B/P (MAP) 144/36 (72) 141/73 (95) 137/78 (97) Pulse Ox 99 97 98 03/02/19 03/02/19 03/02/19 03/02/19 19:31 19:37 19:45 20:00 Pulse 91 87 94 Resp 22 19 B/P (MAP) 118/78 (91) Pulse Ox 94 97 98 O2 Delivery Room Air 03/02/19 03/02/19 03/02/19 03/02/19 20:02 20:15 20:32 20:50 Pulse 94 87 89 91 Resp 23 14 33 25 B/P (MAP) 134/78 (96) Pulse Ox 97 98 98 98 03/02/19 03/02/19 03/02/19 03/02/19 21:00 21:07 21:14 21:15 Pulse 91 97 91 82 Resp 21 17 B/P (MAP) 134/74 (94) 132/80 Pulse Ox 98 98 97 03/02/19 03/02/19 03/02/19 03/02/19 21:30 21:45 22:00 22:31 Pulse 99 98 83 94 Resp 21 10 19 B/P (MAP) 132/80 (97) 134/71 (92) 132/60 (84) Pulse Ox 98 92 98 03/02/19 03/02/19 03/02/19 03/02/19 22:45 23:00 23:07 23:08 Temp 98.3 98.3 Pulse 88 96 91 81 Resp 22 17 B/P (MAP) 82/50 (61) 123/66 (85) Pulse Ox 98 97 96 95 03/02/19 03/02/19 03/02/19 03/02/19 23:15 23:29 23:32 23:45 Pulse 80 79 71 Resp 19 20 B/P (MAP) 107/54 (71) Pulse Ox 96 98 97 O2 Delivery Room Air 03/03/19 03/03/19 03/03/19 03/03/19 00:00 00:15 00:31 00:45 Pulse 81 77 80 69 Resp 16 21 B/P (MAP) 104/51 (68) 104/70 (81) Pulse Ox 97 97 98 97 03/03/19 03/03/19 03/03/19 03/03/19 01:00 01:30 01:45 02:00 Pulse 70 76 76 71 Resp 9 16 19 B/P (MAP) 102/50 (67) 113/49 (70) 111/60 (77) Pulse Ox 97 97 99 03/03/19 03/03/19 03/03/19 03/03/19 02:15 02:30 02:45 03:00 Pulse 75 69 71 74 Resp 22 18 B/P (MAP) 103/50 (67) 97/52 (67) Pulse Ox 99 97 98 96 03/03/19 03/03/19 03/03/19 03/03/19 03:15 03:31 03:45 03:59 Pulse 73 93 64 Resp 18 19 B/P (MAP) 127/66 (86) Pulse Ox 97 99 97 O2 Delivery Room Air 03/03/19 03/03/19 03/03/19 03/03/19 04:00 04:15 04:30 04:45 Temp 97.9 97.9 Pulse 70 62 73 72 Resp 20 19 B/P (MAP) 100/66 (77) 120/58 (78) Pulse Ox 97 96 95 03/03/19 03/03/19 03/03/19 03/03/19 05:00 05:15 05:30 05:45 Pulse 71 68 77 77 Resp 19 18 18 28 B/P (MAP) 100/51 (67) 123/44 (70) Pulse Ox 94 99 97 97 03/03/19 03/03/19 03/03/19 06:00 06:15 06:30 Pulse 75 72 65 Resp 19 B/P (MAP) 119/50 (73) 109/44 (65) Pulse Ox 100 99 Intake and Output 03/02/19 03/02/19 03/03/19 15:00 23:00 07:00 Intake Total 2148 ml 1140 ml Output Total 1200 ml 1280 ml Balance 948 ml -140 ml Laboratory Tests Test 03/01/19 20:15 03/01/19 21:24 03/02/19 05:03 03/03/19 04:38 White Blood Count 3.5 10^3/uL 4.3 10^3/uL 4.1 10^3/uL Red Blood Count 3.58 10^6/uL 3.56 10^6/uL 3.48 10^6/uL Hemoglobin 13.3 g/dL 13.3 g/dL 13.0 g/dL Hematocrit 37.9 % 38.4 % 37.8 % Mean Corpuscular Volume 105.9 fL 107.9 fL 108.6 fL Mean Corpuscular Hemoglobin 37.2 pg 37.4 pg 37.4 pg Mean Corpuscular Hemoglobin Concent 35.1 g/dL 34.6 g/dL 34.4 g/dL Red Cell Distribution Width 13.0 % 13.5 % 13.2 % Platelet Count 94 10^3/uL 99 10^3/uL 86 10^3/uL Mean Platelet Volume 10.2 fL 10.6 fL 11.0 fL Neutrophils (%) (Auto) 56.4 % 50.9 % Lymphocytes (%) (Auto) 32.1 % 34.4 % Monocytes (%) (Auto) 7.7 % 9.9 % Neutrophils # (Auto) 2.0 10^3/uL 2.1 10^3/uL Lymphocytes # (Auto) 1.1 10^3/uL 1.4 10^3/uL Monocytes # (Auto) 0.3 10^3/uL 0.4 10^3/uL Absolute Immature Granulocyte (auto 0 10^3 u/L 0 10^3 u/L Immature Granulocytes % 0.00 % 0.00 % Eosinophils % 3.2 % 4.1 % Basophils % 0.6 % 0.7 % Basophils # 0.0 10^3/uL 0.0 10^3/uL Eosinophil Count 0.1 10^3/uL 0.2 10^3/uL Sodium Level 138 mmol/L 144 mmol/L 143 mmol/L Potassium Level 3.0 mmol/L 3.9 mmol/L 3.7 mmol/L Chloride Level 101.0 mmol/L 108.0 mmol/L 108.0 mmol/L Carbon Dioxide Level 23.8 mmol/L 25.7 mmol/L 24.0 mmol/L Anion Gap 16.2 14.2 14.7 Blood Urea Nitrogen 10 mg/dL 6 mg/dL 5 mg/dL Creatinine 0.63 mg/dL 0.54 mg/dL 0.34 mg/dL Estimated GFR () 118.3 141.3 241.0 BUN/Creatinine Ratio 15.0 11.0 14.0 Glucose Level 127 mg/dL 88 mg/dL 86 mg/dL Calcium Level 9.3 mg/dL 9.3 mg/dL 9.3 mg/dL Total Bilirubin 1.2 mg/dL 1.1 mg/dL 0.8 mg/dL Aspartate Amino Transf (AST/SGOT) 100 U/L 81 U/L 64 U/L Alanine Aminotransferase (ALT/SGPT) 69 U/L 68 U/L 60 U/L Alkaline Phosphatase 81 U/L 81 U/L 67 U/L Total Creatine Kinase 89 U/L Troponin I 0.05 ng/mL Total Protein 7.1 g/dL 6.9 g/dL 6.6 g/dL Albumin 3.7 g/dL 3.5 g/dL 3.1 g/dL Globulin 3.4 3.4 3.5 Serum Alcohol < 3 mg/dL Urine Collection Type VOID Urine Color YELLOW Urine Appearance CLEAR Urine Bilirubin NEGATIVE MG/DL Urine Ketones NEGATIVE Urine Specific [place] 1.010 Urine pH 7 Urine Protein NEGATIVE Urine Urobilinogen NORMAL Urine Nitrate NEGATIVE Urine Leukocyte Esterase NEGATIVE Urine Blood NEGATIVE Urine Glucose NORMAL Urine Opiates, Qualitative NEGATIVE ng/mL Urine Methadone, Qualitative NEGATIVE ng/mL Urine Amphetamine Qualitative NEGATIVE ng/mL Urine Barbiturates, Qualitative NEGATIVE ng/mL Urine Phencyclidine Screen NEGATIVE ng/mL Urine MDMA (Ecstasy), Qualitative NEGATIVE ng/mL Urine Benzodiazepines Screen NEGATIVE ng/mL Urine Cocaine Qualitative NEGATIVE ng/mL Ur Tetrahydrocannabinol (THC) Scrn NEGATIVE ng/mL Magnesium Level 1.9 mg/dL Vitamin B12 Level 448 pg/mL Folate 48.1 ng/mL Thyroid Stimulating Hormone (TSH) 7.292 mIU/mL Current Medications Medications (Trade) Dose Ordered Sig/Ewelina PRN Reason Start Time Stop Time Status Last Admin Amitriptyline HCl (Elavil) 10 mg HS 03/02/19 21:00 04/01/19 20:59 03/02/19 21:00 Chlordiazepoxide (Librium) 25 mg BID 03/03/19 09:00 04/01/19 08:59 UNV Cyanocobalamin (Vitamin B-12) 1,000 mcg DAILY 03/02/19 09:00 04/01/19 08:59 03/02/19 08:39 Diltiazem HCl (Cardizem Cd) 120 mg DAILY 03/02/19 09:00 04/01/19 08:59 03/02/19 21:14 Folic Acid (Folic Acid) 1 mg DAILY 03/02/19 09:00 04/01/19 08:59 03/02/19 08:38 Lorazepam (Ativan) 1 mg Q3HR PRN MILD AGITATION 03/02/19 00:30 04/01/19 00:29 Nicotine (Nicotine 21mg Patch) 1 each DAILY 03/02/19 09:00 04/01/19 08:59 03/02/19 08:50 Ondansetron HCl (Zofran) 4 mg Q4H PRN NAUSEA / VOMITING 03/02/19 08:30 04/01/19 08:29 Pantoprazole Sodium (Protonix) 40 mg DAILY 03/02/19 09:00 04/01/19 08:59 03/02/19 08:39 Thiamine HCl (Thiamine HCl) 100 mg DAILY 03/02/19 09:00 04/01/19 08:59 03/02/19 08:39 Course Sepsis Screening Results: Posi: NEGATIVE Sepsis Qualifier/Stage: NO DEFINITE RISK Duration or Total Time Spent w: 60 mins Vitals & review Data Vital Sign - Last 24 Hours 03/02/19 03/02/19 03/02/19 03/02/19 08:15 08:31 08:39 08:45 Pulse 78 108 84 94 Resp 16 19 B/P (MAP) 122/69 (86) 152/76 (101) 119/62 125/70 (88) Pulse Ox 98 99 98 03/02/19 03/02/19 03/02/19 03/02/19 09:00 09:15 09:31 09:46 Pulse 94 86 84 97 Resp 19 19 36 B/P (MAP) 122/68 (86) 127/72 (90) 119/64 (82) 123/58 (79) Pulse Ox 98 100 98 94 03/02/19 03/02/19 03/02/19 03/02/19 10:09 10:30 10:45 11:00 Pulse 87 88 92 83 Resp 14 24 21 15 B/P (MAP) 126/76 (93) 129/68 (88) 125/56 (79) 125/59 (81) Pulse Ox 97 96 95 96 03/02/19 03/02/19 03/02/19 03/02/19 11:28 11:30 11:45 12:00 Pulse 76 79 82 82 Resp 20 18 15 15 B/P (MAP) 128/61 (83) 129/71 (90) 131/72 (91) 146/83 (104) Pulse Ox 96 96 98 99 03/02/19 03/02/19 03/02/19 03/02/19 12:15 12:30 12:30 12:45 Temp 98.6 98.6 Pulse 87 93 Resp 19 14 B/P (MAP) 145/79 (101) 160/69 (99) 149/64 (92) Pulse Ox 95 96 98 O2 Delivery Room Air 03/02/19 03/02/19 03/02/19 03/02/19 13:01 13:15 13:17 13:30 Pulse 98 B/P (MAP) 118/73 (88) 140/54 (82) 130/74 (92) Pulse Ox 96 90 95 98 03/02/19 03/02/19 03/02/19 03/02/19 13:45 14:00 14:15 14:17 B/P (MAP) 150/77 (101) 120/63 (82) Pulse Ox 97 98 98 98 03/02/19 03/02/19 03/02/19 03/02/19 14:25 14:30 14:32 14:46 Pulse 96 94 101 95 Resp 24 18 33 18 B/P (MAP) 124/67 (86) 134/65 (88) 119/77 (91) Pulse Ox 98 97 97 03/02/19 03/02/19 03/02/19 03/02/19 15:01 15:15 15:31 15:45 Pulse 93 97 88 90 Resp 19 23 21 21 B/P (MAP) 159/75 (103) 127/77 (94) 115/63 (80) 108/45 (66) Pulse Ox 96 97 98 96 03/02/19 03/02/19 03/02/19 03/02/19 16:09 16:15 16:37 16:45 Pulse 88 94 89 73 Resp 23 26 16 21 B/P (MAP) 123/73 (90) 129/67 (87) 135/75 (95) 122/79 (93) Pulse Ox 98 98 99 03/02/19 03/02/19 03/02/19 03/02/19 17:23 17:24 17:30 17:45 Pulse 79 95 92 Resp 14 24 B/P (MAP) 132/73 (92) 129/77 (94) 123/70 (87) Pulse Ox 98 98 97 O2 Delivery Room Air 03/02/19 03/02/19 03/02/19 03/02/19 18:30 18:54 19:00 19:15 Temp 99.0 99.0 Pulse 93 96 95 93 Resp 14 27 13 B/P (MAP) 144/36 (72) 141/73 (95) 137/78 (97) Pulse Ox 99 97 98 03/02/19 03/02/19 03/02/19 03/02/19 19:31 19:37 19:45 20:00 Pulse 91 87 94 Resp 22 21 19 B/P (MAP) 118/78 (91) Pulse Ox 94 97 98 O2 Delivery Room Air 03/02/19 03/02/19 03/02/19 03/02/19 20:02 20:15 20:32 20:50 Pulse 94 87 89 91 Resp 23 14 33 25 B/P (MAP) 134/78 (96) Pulse Ox 97 98 98 98 03/02/19 03/02/19 03/02/19 03/02/19 21:00 21:07 21:14 21:15 Pulse 91 97 91 82 Resp 21 17 B/P (MAP) 134/74 (94) 132/80 Pulse Ox 98 98 97 03/02/19 03/02/19 03/02/19 03/02/19 21:30 21:45 22:00 22:31 Pulse 99 98 83 94 Resp 21 10 19 B/P (MAP) 132/80 (97) 134/71 (92) 132/60 (84) Pulse Ox 98 92 98 03/02/19 03/02/19 03/02/19 03/02/19 22:45 23:00 23:07 23:08 Temp 98.3 98.3 Pulse 88 96 91 81 Resp 18 22 17 B/P (MAP) 82/50 (61) 123/66 (85) Pulse Ox 98 97 96 95 03/02/19 03/02/19 03/02/19 03/02/19 23:15 23:29 23:32 23:45 Pulse 80 79 71 Resp 21 19 20 B/P (MAP) 107/54 (71) Pulse Ox 96 98 97 O2 Delivery Room Air 03/03/19 03/03/19 03/03/19 03/03/19 00:00 00:15 00:31 00:45 Pulse 81 77 80 69 Resp 20 19 16 21 B/P (MAP) 104/51 (68) 104/70 (81) Pulse Ox 97 97 98 97 03/03/19 03/03/19 03/03/19 03/03/19 01:00 01:30 01:45 02:00 Pulse 70 76 76 71 Resp 19 9 16 19 B/P (MAP) 102/50 (67) 113/49 (70) 111/60 (77) Pulse Ox 97 97 99 03/03/19 03/03/19 03/03/19 03/03/19 02:15 02:30 02:45 03:00 Pulse 75 69 71 74 Resp 21 13 22 18 B/P (MAP) 103/50 (67) 97/52 (67) Pulse Ox 99 97 98 96 03/03/19 03/03/19 03/03/19 03/03/19 03:15 03:31 03:45 03:59 Pulse 73 93 64 Resp B/P (MAP) 127/66 (86) Pulse Ox 97 99 97 O2 Delivery Room Air 03/03/19 03/03/19 03/03/19 03/03/19 04:00 04:15 04:30 04:45 Temp 97.9 97.9 Pulse 70 62 73 72 Resp B/P (MAP) 100/66 (77) 120/58 (78) Pulse Ox 97 96 95 03/03/19 03/03/19 03/03/19 03/03/19 05:00 05:15 05:30 05:45 Pulse 71 68 77 77 Resp 28 B/P (MAP) 100/51 (67) 123/44 (70) Pulse Ox 94 99 97 97 03/03/19 03/03/19 03/03/19 06:00 06:15 06:30 Pulse 75 72 65 Resp B/P (MAP) 119/50 (73) 109/44 (65) Pulse Ox 100 99 Intake and Output 03/02/19 03/02/19 03/03/19 15:00 23:00 07:00 Intake Total 2148 ml 1140 ml Output Total 1200 ml 1280 ml Balance 948 ml -140 ml Laboratory Tests Test 03/01/19 20:15 03/01/19 21:24 03/02/19 05:03 03/03/19 04:38 White Blood Count 3.5 10^3/uL 4.3 10^3/uL 4.1 10^3/uL Red Blood Count 3.58 10^6/uL 3.56 10^6/uL 3.48 10^6/uL Hemoglobin 13.3 g/dL 13.3 g/dL 13.0 g/dL Hematocrit 37.9 % 38.4 % 37.8 % Mean Corpuscular Volume 105.9 fL 107.9 fL 108.6 fL Mean Corpuscular Hemoglobin 37.2 pg 37.4 pg 37.4 pg Mean Corpuscular Hemoglobin Concent 35.1 g/dL 34.6 g/dL 34.4 g/dL Red Cell Distribution Width 13.0 % 13.5 % 13.2 % Platelet Count 94 10^3/uL 99 10^3/uL 86 10^3/uL Mean Platelet Volume 10.2 fL 10.6 fL 11.0 fL Neutrophils (%) (Auto) 56.4 % 50.9 % Lymphocytes (%) (Auto) 32.1 % 34.4 % Monocytes (%) (Auto) 7.7 % 9.9 % Neutrophils # (Auto) 2.0 10^3/uL 2.1 10^3/uL Lymphocytes # (Auto) 1.1 10^3/uL 1.4 10^3/uL Monocytes # (Auto) 0.3 10^3/uL 0.4 10^3/uL Absolute Immature Granulocyte (auto 0 10^3 u/L 0 10^3 u/L Immature Granulocytes % 0.00 % 0.00 % Eosinophils % 3.2 % 4.1 % Basophils % 0.6 % 0.7 % Basophils # 0.0 10^3/uL 0.0 10^3/uL Eosinophil Count 0.1 10^3/uL 0.2 10^3/uL Sodium Level 138 mmol/L 144 mmol/L 143 mmol/L Potassium Level 3.0 mmol/L 3.9 mmol/L 3.7 mmol/L Chloride Level 101.0 mmol/L 108.0 mmol/L 108.0 mmol/L Carbon Dioxide Level 23.8 mmol/L 25.7 mmol/L 24.0 mmol/L Anion Gap 16.2 14.2 14.7 Blood Urea Nitrogen 10 mg/dL 6 mg/dL 5 mg/dL Creatinine 0.63 mg/dL 0.54 mg/dL 0.34 mg/dL Estimated GFR () 118.3 141.3 241.0 BUN/Creatinine Ratio 15.0 11.0 14.0 Glucose Level 127 mg/dL 88 mg/dL 86 mg/dL Calcium Level 9.3 mg/dL 9.3 mg/dL 9.3 mg/dL Total Bilirubin 1.2 mg/dL 1.1 mg/dL 0.8 mg/dL Aspartate Amino Transf (AST/SGOT) 100 U/L 81 U/L 64 U/L Alanine Aminotransferase (ALT/SGPT) 69 U/L 68 U/L 60 U/L Alkaline Phosphatase 81 U/L 81 U/L 67 U/L Total Creatine Kinase 89 U/L Troponin I 0.05 ng/mL Total Protein 7.1 g/dL 6.9 g/dL 6.6 g/dL Albumin 3.7 g/dL 3.5 g/dL 3.1 g/dL Globulin 3.4 3.4 3.5 Serum Alcohol < 3 mg/dL Urine Collection Type VOID Urine Color YELLOW Urine Appearance CLEAR Urine Bilirubin NEGATIVE MG/DL Urine Ketones NEGATIVE Urine Specific [place] 1.010 Urine pH 7 Urine Protein NEGATIVE Urine Urobilinogen NORMAL Urine Nitrate NEGATIVE Urine Leukocyte Esterase NEGATIVE Urine Blood NEGATIVE Urine Glucose NORMAL Urine Opiates, Qualitative NEGATIVE ng/mL Urine Methadone, Qualitative NEGATIVE ng/mL Urine Amphetamine Qualitative NEGATIVE ng/mL Urine Barbiturates, Qualitative NEGATIVE ng/mL Urine Phencyclidine Screen NEGATIVE ng/mL Urine MDMA (Ecstasy), Qualitative NEGATIVE ng/mL Urine Benzodiazepines Screen NEGATIVE ng/mL Urine Cocaine Qualitative NEGATIVE ng/mL Ur Tetrahydrocannabinol (THC) Scrn NEGATIVE ng/mL Magnesium Level 1.9 mg/dL Vitamin B12 Level 448 pg/mL Folate 48.1 ng/mL Thyroid Stimulating Hormone (TSH) 7.292 mIU/mL Current Medications Medications (Trade) Dose Ordered Sig/Ewelina PRN Reason Start Time Stop Time Status Last Admin Amitriptyline HCl (Elavil) 10 mg HS 03/02/19 21:00 04/01/19 20:59 03/02/19 21:00 Chlordiazepoxide (Librium) 25 mg BID 03/03/19 09:00 04/01/19 08:59 UNV Cyanocobalamin (Vitamin B-12) 1,000 mcg DAILY 03/02/19 09:00 04/01/19 08:59 03/02/19 08:39 Diltiazem HCl (Cardizem Cd) 120 mg DAILY 03/02/19 09:00 04/01/19 08:59 03/02/19 21:14 Folic Acid (Folic Acid) 1 mg DAILY 03/02/19 09:00 04/01/19 08:59 03/02/19 08:38 Lorazepam (Ativan) 1 mg Q3HR PRN MILD AGITATION 03/02/19 00:30 04/01/19 00:29 Nicotine (Nicotine 21mg Patch) 1 each DAILY 03/02/19 09:00 04/01/19 08:59 03/02/19 08:50 Ondansetron HCl (Zofran) 4 mg Q4H PRN NAUSEA / VOMITING 03/02/19 08:30 04/01/19 08:29 Pantoprazole Sodium (Protonix) 40 mg DAILY 03/02/19 09:00 04/01/19 08:59 03/02/19 08:39 Thiamine HCl (Thiamine HCl) 100 mg DAILY 03/02/19 09:00 04/01/19 08:59 03/02/19 08:39 Sepsis Infection Criteria Pres: None LEVEL 1 SEPSIS INFECTION CRITE: None/Not assessed LEVEL 2-SIRS (LIST ALL THAT AP: None/Not assessed Cardiovascular Evidence: Not Assessed or None Hematologic Evidence: Platelets<100K Hepatic Evidence: Elevated AST(SGOT)>72 Metabolic Evidence: None/Not assessed Neurological Evidence: None/Not assessed Respiratory Evidence: None/Not assessed Renal Evidence: None/Not assessed O2 Sat by Pulse Oximetry: 100 Plan Discharge Date: Mar 04, 2019 Dicharge DX: Seizure, alcohol withdrawals Discharge Disposition: Stable Plan ok to d/c to home self care medications: per med rec list Diet: regular Activity: no driving until cleared by PCP F/u with PCP within 1 week F/U with GI within 4 weeks Return to care for any concerning symptoms. FINA CHRIS MD Mar 04, 2019 09:18
[2019-03-04 11:53] VITALS: BP 133/71
--- NOTE | 2019-03-04 11:55 | NUR ---
DISCHARGE PATIENT BEING DISCHARGED HOME AT THIS TIME IN STABLE CONDITION. PATIENT STATES THAT "SHE HAS PLENTY OF HELP AT HOME WITH HER CARE." PATIENT DENIES NEEDING ADDITIONAL RESOURCES AT THIS TIME. PATIENT WAS ASSISTED DOWNSTAIRS AT THIS TIME. RELINQUISHED CARE FOR PATIENT.
[2019-03-04] MEDS ORDERED: KLOR-CON 10 PO SCH (12:00)
== END 2019-03-04 15:41 | disposition home or self-care (01) | DRG 101 ==
LOC: ER 20:00 → ICU 22:01 → MS 03-03 14:07
PROVIDERS: ADMIT Internal Medicine; ATTEND Internal Medicine
DX: G40.89 Other seizures (principal); F10.239 Alcohol dependence with withdrawal, unspecified; E87.6 Hypokalemia; D69.59 Other secondary thrombocytopenia; F17.210 Nicotine dependence, cigarettes, uncomplicated; F32.9 Major depressive disorder, single episode, unspecified; F41.9 Anxiety disorder, unspecified; I10 Essential (primary) hypertension; K70.9 Alcoholic liver disease, unspecified; R32 Unspecified urinary incontinence; Z88.6 Allergy status to analgesic agent; Z98.891 History of uterine scar from previous surgery; Z71.41 Alcohol abuse counseling and surveillance of alcoholic; Z79.899 Other long term (current) drug therapy
CPT/HCPCS: 36415; 70450; 71045; 80053; 80307; 80320; 81002; 82550; 82607; 82746; 83735; 84425; 84443; 84484; 85025; 85027; 93005; 99285; G0378; J3490; J7030